=== PATIENT | female | born 1980 | race Caucasian/White ===

== ENCOUNTER 2018-06-07 12:00 | Emergency (ER) | payer OTHER ==
[2018-06-07 12:13] VITALS: BP 140/77; PULSE 98; TEMP 98.2; BMI 33.3
--- NOTE | 2018-06-07 13:07 | PDOC ---
History of Present Illness - General Chief Complaint: Pain Stated Complaint: PAIN Time Seen by Provider: 06/07/18 12:56 History Source: Patient Exam Limitations: No Limitations - History of Present Illness Initial Comments: CHIEF COMPLAINT: HISTORY OF PRESENT ILLNESS: Vital signs on arrival are within normal limits. REVIEW OF SYSTEMS: GENERAL/CONSTITUTIONAL: No fever/chills. No weakness. No weight change. HEAD, EYES, EARS, NOSE AND THROAT: No change in vision. No ear pain or discharge. No sore throat. CARDIOVASCULAR: No chest pain or shortness of breath. RESPIRATORY: No cough, wheezing, or hemoptysis. GASTROINTESTINAL: See history of present illness. MUSCULOSKELETAL: No joint or muscle swelling or pain. No neck or back pain. SKIN: No rash or easy bruising. NEUROLOGIC: No headache, vertigo, loss of consciousness, or loss of sensation. PHYSICAL EXAM: GENERAL: The patient is awake, alert, and fully oriented, in no acute distress. HEAD: Normal with no signs of trauma. ENT: Pupils equal, round and reactive to light, extraocular movements intact, sclera anicteric, conjunctiva clear. Neck supple. LUNGS: Clear to auscultation bilaterally. Normal excursion. No respiratory distress or use of accessory muscles. CV: RRR, S1/S2, no MRG. Cap refill < 2 sec. ABDOMEN: Soft, non-distended, non-tender even to deep palpation, no hepatomegaly or splenomegaly, no masses. EXTREMITIES: Normal range of motion, no edema. NEUROLOGICAL: Normal speech, normal gait. CN II-XII grossly intact. SKIN: Warm, dry, normal turgor, no rashes or lesions noted. Past History - Past Medical History Allergies/Adverse Reactions: Allergies Allergy/AdvReac Type Severity Reaction Status Date / Time black pepper Allergy Verified 09/16/15 22:27 sulfamethoxazole Allergy Verified 09/16/15 22:27 [From Bactrim] trimethoprim [From Bactrim] Allergy Verified 09/16/15 22:27 pineapples Allergy Mild Hives Uncoded 09/16/15 22:27 Home Medications: Ambulatory Orders Tramadol HCl 50 mg PO TID PRN #15 tablet 06/09/15 Oxycodone HCl/Acetaminophen [Percocet 5-325 mg Tablet] 1 - 2 tab PO Q6H PRN #15 tab 09/17/15 Cyclobenzaprine HCl 10 mg PO ASDIR 06/07/18 Gabapentin 600 mg PO ASDIR 06/07/18 Meclizine HCl 25 mg PO ASDIR 06/07/18 Meloxicam 15 mg PO ASDIR 06/07/18 Anemia: No Asthma: Yes Cardiac Disorders: No CVA: No COPD: No GI Disorders: Yes (CHRONIC CONSTIPATION, pancreatitis) Other medical history: Fibromyalgia,sciatica,spinal stenosis - Surgical History Abdominal Surgery: Yes - Reproductive History (#): 4 Para: 2 Therapeutic (s) & number: Yes (1) Spontaneous : 1 - Immunization History Immunization Up to Date: Yes - Suicide/Smoking/Psychosocial Hx Smoking Status: Yes Smoking History: Never smoked Have you smoked in the past 12 months: No Number of Cigarettes Smoked Daily: 2 'Breaking Loose' booklet given: 01/12/14 Hx Alcohol Use: No Drug/Substance Use Hx: No Substance Use Type: None Hx Substance Use Treatment: No *Physical Exam - Vital Signs Last Vital Signs Temp Pulse Resp BP Pulse Ox 98.2 F 98 H 20 140/77 100 06/07/18 12:08 06/07/18 12:08 06/07/18 12:08 06/07/18 12:08 06/07/18 12:08 Medical Decision Making - Medical Decision Making A/P:
[2018-06-07 14:44] LABS: BASO % 0.5 % (0-2.0); HEMATOCRIT 40.6 % (32.4-45.2); HEMOGLOBIN 14.4 GM/dL (10.7-15.3); LYMPH % 18.7 % (8-40); MCH 31.1 pg (25.7-33.7); MCHC 35.4 g/dl (32.0-36.0); MEAN CELL VOLUME 87.9 fl (80-96); MEAN PLT VOLUME 7.3 fl (7.5-11.1); MONO % 8.1 % (3.8-10.2); NEUT % 72.7 % (42.8-82.8); PLATELET COUNT 284 K/MM3 (134-434); RBC 4.62 M/mm3 (3.60-5.2); RDW 12.7 % (11.6-15.6); WHITE BLOOD COUNT 7.2 K/mm3 (4.0-10.0)
[2018-06-07 14:59] LABS: ALBUMIN 4.4 g/dl (3.4-5.0); ANION GAP 11 (8-16); BILIRUBIN,TOTAL 0.5 mg/dL (0.2-1.0); BLOOD UREA NITROGEN 13 mg/dL (7-18); CALCIUM 9.3 mg/dL (8.5-10.1); CHLORIDE 104 mmol/L (98-107); CO2 22 mmol/L (21-32); GLUCOSE,RANDOM 93 mg/dL (74-106); LIPASE 129 U/L (73-393); POTASSIUM 3.9 mmol/L (3.5-5.1); SODIUM 137 mmol/L (136-145)
[2018-06-07 15:01] LABS: ALK PHOS 56 U/L (45-117); CREATININE 0.7 mg/dL (0.55-1.02); SGOT/AST 20 U/L (15-37); SGPT/ALT 25 U/L (12-78); TOT PROT 7.8 g/dl (6.4-8.2)
[2018-06-07] MEDS ORDERED: morphine CARPU-JECT 4 MG/1 ML DISP.SYRIN IVPUSH ONE (15:56)
--- NOTE | 2018-06-07 16:01 | PDOC ---
History of Present Illness <Augustin Silveira - Last Filed: 06/07/18 19:58> - History of Present Illness Initial Comments: 06/07/18 15:48 37 yo F w a hx of arthritis, spinal stenosis, pancreatitis, tryglyceridemia, asthma, fibromyalgia, MRSA, H-pylori, vertigo, kidney stones is here with 4 days of diffuse abdominal pain which she describes as burning and stabbing in nature. The pain has gotten worse since it began. She originally said it was worst in the LUQ underneath the left rib. She then said the pain migrated to her epigastric region and feels like the pain is in abelt like distribution around the abdomen with radiation to the back. Patient is unsure if her back pain is new or chronic in nature given chronic sciatica and back pain. She also is endorsing dysuria, and frequency. Denies blood in her urine. Normal defecation, last BM this morning. No diarrhea or constipation. Patient is not sure if she had recent fevers bc she takes percocet (with tylenol ) so if she was febrile she wouldn't know. She has felt nauseas for 3 days but denies vomiting. She has not been able to sleep for the past 2 nights. She promises that she does not drink any alcohol. She smokes 2 or 3 cigarettes a day She has a hx of pancreatitis and kidney stones and says this current episode does not feel like either of those. 06/07/18 16:01 06/07/18 16:08 <Jaime Arreaga - Last Filed: 06/07/18 20:33> - General Chief Complaint: Pain Stated Complaint: PAIN Time Seen by Provider: 06/07/18 12:56 Past History <Augustin Silveira - Last Filed: 06/07/18 19:58> - Past Medical History Anemia: No Asthma: Yes Cardiac Disorders: No CVA: No COPD: No GI Disorders: Yes (CHRONIC CONSTIPATION, pancreatitis) Other medical history: Fibromyalgia,sciatica,spinal stenosis - Surgical History Abdominal Surgery: Yes - Reproductive History (#): 4 Para: 2 Therapeutic (s) & number: Yes (1) Spontaneous : 1 - Immunization History Immunization Up to Date: Yes - Suicide/Smoking/Psychosocial Hx Smoking Status: Yes Smoking History: Never smoked Have you smoked in the past 12 months: No Number of Cigarettes Smoked Daily: 2 'Breaking Loose' booklet given: 01/12/14 Hx Alcohol Use: No Drug/Substance Use Hx: No Substance Use Type: None Hx Substance Use Treatment: No <Jaime Arreaga - Last Filed: 06/07/18 20:33> - Past Medical History Allergies/Adverse Reactions: Allergies Allergy/AdvReac Type Severity Reaction Status Date / Time black pepper Allergy Verified 09/16/15 22:27 sulfamethoxazole Allergy Verified 09/16/15 22:27 [From Bactrim] trimethoprim [From Bactrim] Allergy Verified 09/16/15 22:27 pineapples Allergy Mild Hives Uncoded 09/16/15 22:27 Home Medications: Ambulatory Orders Tramadol HCl 50 mg PO TID PRN #15 tablet 06/09/15 Oxycodone HCl/Acetaminophen [Percocet 5-325 mg Tablet] 1 - 2 tab PO Q6H PRN #15 tab 09/17/15 Acetaminophen 500 mg PO PRN #30 tablet 06/07/18 Cyclobenzaprine HCl 10 mg PO ASDIR 06/07/18 Gabapentin 600 mg PO ASDIR 06/07/18 Meclizine HCl 25 mg PO ASDIR 06/07/18 Meloxicam 15 mg PO ASDIR 06/07/18 Review of Systems - Review of Systems Comments:: 06/07/18 16:16 CONSTITUTIONAL: Positive: loss of appetite, malaise Absent: fever, chills, diaphoresis, generalized weakness HEENT: Absent: rhinorrhea, nasal congestion, throat pain, throat swelling, difficulty swallowing, mouth swelling, ear pain, eye pain, visual Changes CARDIOVASCULAR: Absent: chest pain, syncope, palpitations, irregular heart rate, lightheadedness , peripheral edema RESPIRATORY: Absent: cough, shortness of breath, dyspnea with exertion, orthopnea, wheezing, stridor, hemoptysis GASTROINTESTINAL: Positive: Abdominal pain, Nausea Absent: abdominal distension, vomiting, diarrhea, constipation, melena, hematochezia GENITOURINARY: PositiveL dysuria, frequency, L flank pain Absent: urgency, hesitancy, hematuria, genital pain MUSCULOSKELETAL: Positive: myalgia, arthralgia Absent: joint swelling SKIN: Absent: rash, itching, pallor HEMATOLOGIC/IMMUNOLOGIC: Absent: easy bleeding, easy bruising, lymphadenopathy, frequent infections ENDOCRINE: Absent: unexplained weight gain, unexplained weight loss, heat intolerance, cold intolerance NEUROLOGIC: Positive: dizziness Absent: headache, focal weakness or paresthesias, unsteady gait, seizure, mental status changes, bladder or bowel incontinence PSYCHIATRIC: Absent: anxiety, depression, suicidal or homicidal ideation, hallucinations. <Jaime Arreaga - Last Filed: 06/07/18 20:33> *Physical Exam - Vital Signs Last Vital Signs Temp Pulse Resp BP Pulse Ox 98.2 F 98 H 20 140/77 100 06/07/18 12:08 06/07/18 12:08 06/07/18 12:08 06/07/18 12:08 06/07/18 12:08 <Augustin Silveira - Last Filed: 06/07/18 19:58> - Vital Signs Last Vital Signs Temp Pulse Resp BP Pulse Ox 98.2 F 98 H 20 140/77 100 06/07/18 12:08 06/07/18 12:08 06/07/18 12:08 06/07/18 12:08 06/07/18 12:08 - Physical Exam Comments: 06/07/18 16:21 ABDOMINAL: There is TTP in the epigastric, LUQ, and suprapubic regions. hr abdomen is soft. Non-tender. Non-distended. No rebound or guarding. No organomegaly. Normoactive bowel sounds. GENERAL: Patient is in mild distress due to pain Well developed, well nourished. Awake and alert. HEENT: Normocephalic, atraumatic. PERRLA, EOMI. No conjunctival pallor. Sclera are non- icteric. Moist mucous membranes. Oropharynx is clear. NECK: Supple. Full ROM. No JVD. Carotid pulses 2+ and symmetric, without bruits. No thyromegaly. No lymphadenopathy. CARDIOVASCULAR: Regular rate and rhythm. No murmurs, rubs, or gallops. Distal pulses are 2+ and symmetric. PULMONARY: No evidence of respiratory distress. Lungs clear to auscultation bilaterally. No wheezing, rales or rhonchi. MUSCULOSKELETAL Normal range of motion at all joints. No bony deformities. No CVA tenderness. EXTREMITIES: No cyanosis. No clubbing. No edema. No calf tenderness. SKIN: Warm and dry. Normal capillary refill. No rashes. No jaundice. NEUROLOGICAL: Alert, awake, appropriate. Cranial nerves 2-12 intact. No deficits to light touch and temperature in face, upper extremities and lower extremities. No motor deficits in the in face, upper extremities and lower extremities. Normoreflexic in the upper and lower extremities. Normal speech. Toes are down-going bilaterally. Gait is normal without ataxia. PSYCHIATRIC: Cooperative. Good eye contact. Appropriate mood and affect. 06/07/18 16:33 <Jaime Arreaga - Last Filed: 06/07/18 20:33> ED Treatment Course - LABORATORY CBC & Chemistry Diagram: 06/07/18 14:21 06/07/18 14:20 - ADDITIONAL ORDERS Additional order review: Laboratory Results 06/07/18 06/07/18 06/07/18 15:48 15:48 14:21 Sodium Potassium Chloride Carbon Dioxide Anion Gap BUN Creatinine Creat Clearance w eGFR Random Glucose Lactic Acid 1.3 Calcium Total Bilirubin AST ALT Alkaline Phosphatase Total Protein Albumin Lipase Urine Color Yellow Urine Appearance Slcloudy Urine pH 5.0 Ur Specific Normal 1.020 Urine Protein Negative Urine Glucose (UA) Negative Urine Ketones Negative Urine Blood Negative Urine Nitrite Negative Urine Bilirubin Negative Urine Urobilinogen Negative Ur Leukocyte Esterase Negative Urine HCG, Qual Negative 06/07/18 14:20 Sodium 137 Potassium 3.9 Chloride 104 Carbon Dioxide 22 Anion Gap 11 BUN 13 Creatinine 0.7 Creat Clearance w eGFR > 60 Random Glucose 93 Lactic Acid Calcium 9.3 Total Bilirubin 0.5 AST 20 ALT 25 Alkaline Phosphatase 56 Total Protein 7.8 Albumin 4.4 Lipase 129 Urine Color Urine Appearance Urine pH Ur Specific Normal Urine Protein Urine Glucose (UA) Urine Ketones Urine Blood Urine Nitrite Urine Bilirubin Urine Urobilinogen Ur Leukocyte Esterase Urine HCG, Qual 06/07/18 14:21 RBC 4.62 MCV 87.9 MCHC 35.4 RDW 12.7 MPV 7.3 L Neutrophils % 72.7 Lymphocytes % 18.7 Monocytes % 8.1 Eosinophils % 0.0 D Basophils % 0.5 - Medications Given in the ED: ED Medications Discontinued Medications Generic Name Dose Route Start Last Admin Trade Name Freq PRN Reason Stop Dose Admin Al Hydroxide/Mg Hydroxide 30 ml 06/07/18 16:32 06/07/18 16:48 Mylanta Oral Suspension - PO 06/07/18 16:33 30 ml ONCE ONE Administration Famotidine/Sodium Chloride 20 mg in 50 mls @ 100 mls/hr 07/26/18 16:32 16:48 Pepcid 20 Mg Premixed Ivpb - IVPB 06/07/18 17:01 100 mls/hr ONCE ONE Administration Morphine Sulfate 6 mg 06/07/18 15:56 06/07/18 16:08 Morphine Injection - IVPUSH 06/07/18 15:57 6 mg ONCE ONE Administration Sodium Chloride 1,000 ml 06/07/18 16:41 06/07/18 17:04 Normal Saline - IV 06/07/18 16:42 1,000 ml ONCE ONE Administration <Soniya Silveiraan - Last Filed: 06/07/18 19:58> - LABORATORY CBC & Chemistry Diagram: 06/07/18 14:21 06/07/18 14:20 - ADDITIONAL ORDERS Additional order review: Laboratory Results 06/07/18 06/07/18 14:21 14:20 Sodium 137 Potassium 3.9 Chloride 104 Carbon Dioxide 22 Anion Gap 11 BUN 13 Creatinine 0.7 Creat Clearance w eGFR > 60 Random Glucose 93 Lactic Acid 1.3 Calcium 9.3 Total Bilirubin 0.5 AST 20 ALT 25 Alkaline Phosphatase 56 Total Protein 7.8 Albumin 4.4 Lipase 129 06/07/18 14:21 RBC 4.62 MCV 87.9 MCHC 35.4 RDW 12.7 MPV 7.3 L Neutrophils % 72.7 Lymphocytes % 18.7 Monocytes % 8.1 Eosinophils % 0.0 D Basophils % 0.5 <Jaime Arreaga - Last Filed: 06/07/18 20:33> Medical Decision Making - Medical Decision Making 06/07/18 16:34 37 yo F w a hx of asthma, fibromyalgia, sciatica, arthritis, spinal stenosis, pancreatitis, kidney stones, pyelonephritis, tryglyceridemia, MRSA, H-pylori, vertigo, gastritis, hepatic steatosis, splenomegaly, is here w 4 days of sharp pain worst in the epigastrium. a month ago she had an US which showed hepatic steatosis, splenomegaly, and an enlarged gallbladder with no evidence of cholecystitis. bloodwork was unremarkable. lipase 126. Plan: UA, Hcg, RUQ US, +/- CTAP, re-assess, analgesia. Re-assessment: Patient feels somewhat better after 6 mg morphine. Urine unremarkable - no uti, no pylo, neg hcg. She is eating a large portion of food and looks much better than initial presentation. Plan is to DC w GI FU. 06/07/18 17:32 06/07/18 20:23 <Jaime Arreaga - Last Filed: 06/07/18 20:33> *DC/Admit/Observation/Transfer <JordanaAugustin - Last Filed: 06/07/18 19:58> <Jaime Arreaga - Last Filed: 06/07/18 20:33> Diagnosis at time of Disposition: Abdominal pain - Discharge Dispostion Disposition: HOME - Prescriptions Prescriptions: Acetaminophen 500 mg PO PRN #30 tablet - Referrals Referrals: Rivas Viera MD [Staff Physician] - - Patient Instructions Printed Discharge Instructions: DI for Abdominal Pain-Adult Additional Instructions: Follow up with a GI doctor within 1 week for further evaluation of your abdominal pain. You may need a repeat endoscopy. If you experience worsening pain, vomiting, fevers, or any other concerning symptoms, return to the ER immediately.
[2018-06-07] MEDS ORDERED: morphine SULFATE 4 MG/ML VIAL ONE (16:02)
[2018-06-07 16:12] LABS: URINE APPEARANCE SLCLOUDY; URINE BILIRUBIN NEGATIVE (<2.0 mg/dL); URINE COLOR YELLOW; URINE GLUCOSE (UA) NEGATIVE (NEGATIVE); URINE KETONE NEGATIVE (NEGATIVE); URINE LEUK ESTERASE NEGATIVE (NEGATIVE); URINE NITRITE NEGATIVE (NEGATIVE); URINE PROTEIN NEGATIVE (NEGATIVE); URINE UROBILINOGEN NEGATIVE mg/dL (0.2-1.0)
[2018-06-07] MEDS ORDERED: MAG HYDROX/AL HYDROX/SIMETH 30 ML UNIT-DOSE CUP PO ONE (16:32)
[2018-06-07] MEDS ORDERED: FAMOTIDINE 20 MG/50 ML IVPB 20 MG/50 ML MG IVPB ONE ×2 (16:32→16:43)
[2018-06-07] MEDS ORDERED: SODIUM CHLORIDE 0.9% 500 ML INFUS.BAG IV ONE (16:41)
[2018-06-07] MEDS ORDERED: MAG HYDROX/AL HYDROX/SIMETH 30 ML UNIT-DOSE CUP ONE (16:43)
--- NOTE | 2018-06-07 18:18 | PDOC ---
Attending Attestation - Resident Resident Name: AdelaadeolaJaime - ED Attending Attestation I have performed the following: I have examined & evaluated the patient, The case was reviewed & discussed with the resident, I agree w/resident's findings & plan, Exceptions are as noted - HPI HPI: 06/07/18 18:13 "The patient is a 37 year old female, with a significant PMH of arthritis, spinal stenosis, pancreatitis, triglyceridemia, asthma, fibromyalgia, MRSA, H- pylori, vertigo, kidney stones who presents to the emergency department with abdominal pain. Pt reports chronic abdominal pain for which she has been evaluated by her PMD, GI, and national business director. She reports multiple CT scans and ultrasounds, as well as endoscopy and colonoscopy, all of which have been inconclusive. Pt states that the pain she has currently is the pain she has had in the past. It is localized to her upper abdomen as well as her RLQ. Pt denies N/V. Denies diarrhea/constipation. The patient states she takes Percocet with Tylenol so she is unsure of any recent fevers. The patient reports a history of pancreatitis and kidney stones and states her symptoms today do not feel similar to either of these. The patient denies chest pain, shortness of breath, headache and dizziness. Denies vomit, diarrhea, constipation, urgency and hematuria. Allergies: black pepper, sulfamethoxazole, trimethoprim, [pineapples] - Physicial Exam PE: 06/07/18 18:16 "GENERAL: Awake, alert, and fully oriented, in no acute distress. HEAD: No signs of trauma EYES: PERRLA, EOMI, sclera anicteric, conjunctiva clear ENT: Auricles normal inspection, hearing grossly normal, nares patent, oropharynx clear without exudates. Moist mucosa NECK: Nontender, no stepoffs, Normal ROM, supple, no lymphadenopathy, JVD, or masses LUNGS: Breath sounds equal, clear to auscultation bilaterally. No wheezes, and no crackles HEART: Regular rate and rhythm, normal S1 and S2, no murmurs, rubs or gallops ABDOMEN: + diffuse abdominal tenderness, normoactive bowel sounds. No guarding , no rebound. No masses EXTREMITIES: Normal range of motion, no edema. No clubbing or cyanosis. No cords, erythema, or tenderness NEUROLOGICAL: Cranial nerves II through XII intact. 5/5 strength and sensation in all extremities, Normal speech, normal gait, normal cerebellar function SKIN: Warm, Dry, normal turgor, no rashes or lesions noted. - Medical Decision Making 06/07/18 18:17 37 F with chronic abdominal pain. Exam with diffuse tenderness. Low suspicion for acute process, as pain is consistent with pt's chronic symptoms. - Labs, UA, UPT - RUQ sono - IVF, GI cocktail 06/07/18 19:18 Labs, UA wnl Pending RUQ sono US unremarkable. Labs and UA wnl. Pt reassessed - is tolerating PO, eating dinner. Pt is well appearing, with normal vitals. Clinically stable for DC at this time. I discussed the physical exam findings, ancillary test results and final diagnoses with the patient. I answered all of the patient's questions. The patient was satisfied with the care received and felt comfortable with the discharge plan and treatment plan. The patient agrees to follow up with the primary care physician within 24-72 hours. <Augustin Silveira - Last Filed: 06/09/18 08:57> Attestations - Attestations 06/07/18 18:24 Documentation prepared by Jaime Echols, acting as emergency medical technician/driver for Augustin Silveira MD. <Jaime Echols - Last Filed: 06/07/18 18:24>
--- NOTE | 2018-06-08 11:25 | EKG ---
Test Reason : Blood Pressure : / mmHG Vent. Rate : 083 BPM Atrial Rate : 083 BPM P-R Int : 144 ms QRS Dur : 086 ms QT Int : 376 ms P-R-T Axes : 043 064 054 degrees QTc Int : 441 ms NORMAL SINUS RHYTHM NORMAL ECG WHEN COMPARED WITH ECG OF 01-FEB-2012 08:32, NONSPECIFIC T WAVE ABNORMALITY, IMPROVED IN ANTERIOR LEADS Confirmed by QUITA GARCIA, MINDY ([id number]) on 06/08/2018 11:25:14 AM Referred By: Confirmed By:MINDY DEVLIN MD
== END 2018-06-07 20:04 | disposition home or self-care (01) ==
LOC: JER 12:00
DX: R10.84 Generalized abdominal pain (principal); M12.9 Arthropathy, unspecified; K86.9 Disease of pancreas, unspecified; M48.00 Spinal stenosis, site unspecified; E78.5 Hyperlipidemia, unspecified; J45.909 Unspecified asthma, uncomplicated; M79.7 Fibromyalgia; Z87.442 Personal history of urinary calculi; Z86.14 Personal history of Methicillin resistant Staphylococcus aureus infection; Z86.19 Personal history of other infectious and parasitic diseases
CPT/HCPCS: 36415; 76705-TC; 80053; 81003; 83605; 83690; 84703; 85025; 93005; 93010; 99283-25

== ENCOUNTER 2018-06-21 16:15 | Emergency (ER) | payer OTHER ==
[2018-06-21 16:33] VITALS: BP 141/72; PULSE 81; TEMP 98; BMI 43.9
--- NOTE | 2018-06-21 16:34 | PDOC ---
Rapid Medical Evaluation Time Seen by Provider: 06/21/18 16:32 Medical Evaluation: Allergies Allergy/AdvReac Type Severity Reaction Status Date / Time black pepper Allergy Verified 09/16/15 22:27 sulfamethoxazole Allergy Verified 09/16/15 22:27 [From Bactrim] trimethoprim [From Bactrim] Allergy Verified 09/16/15 22:27 pineapples Allergy Mild Hives Uncoded 09/16/15 22:27 I have performed a brief in-person evaluation of this patient. The patient presents with a chief complaint of: left arm swelling and burning s /p CT scan with contrast today Pertinent physical exam findings: swollen left arm I have ordered the following: none. Patient has an IUD The patient will proceed to the ED for further evaluation. Discharge Disposition - Diagnosis Left arm swelling - Referrals - Patient Instructions - Post Discharge Activity
[2018-06-21] MEDS ORDERED: diphenhydrAMINE HCL 25 MG CAPSULE (FP) PO ONE ×2 (17:10→17:47)
[2018-06-21] MEDS ORDERED: IBUPROFEN 400 MG TABLET (FP) PO ONE ×2 (17:10→17:47)
[2018-06-21] MEDS ORDERED: ONDANSETRON *ODT* 4 MG TABLET SL ONE (18:52)
--- NOTE | 2018-06-21 18:52 | PDOC ---
History of Present Illness - General Chief Complaint: Chronic pain Stated Complaint: NUMBNESS Time Seen by Provider: 06/21/18 16:32 Past History - Travel Traveled outside of the country in the last 30 days: No Close contact w/someone who was outside of country & ill: No - Past Medical History Allergies/Adverse Reactions: Allergies Allergy/AdvReac Type Severity Reaction Status Date / Time black pepper Allergy Verified 06/21/18 16:34 sulfamethoxazole Allergy Verified 06/21/18 16:34 [From Bactrim] trimethoprim [From Bactrim] Allergy Verified 06/21/18 16:34 pineapples Allergy Mild Hives Uncoded 06/21/18 16:34 Home Medications: Ambulatory Orders Oxycodone HCl/Acetaminophen [Percocet 5-325 mg Tablet] 1 - 2 tab PO Q6H PRN #15 tab 09/17/15 Acetaminophen 500 mg PO PRN #30 tablet 06/07/18 Cyclobenzaprine HCl 10 mg PO ASDIR 06/07/18 Gabapentin 600 mg PO ASDIR 06/07/18 Meclizine HCl 25 mg PO ASDIR 06/07/18 Meloxicam 15 mg PO ASDIR 06/07/18 Albuterol Sulfate Inhaler - [Ventolin Hfa Inhaler -] 1 - 2 inh PO Q4H PRN Fenofibrate Nanocrystallized [Tricor] 145 mg PO DAILY 06/21/18 Montelukast Sodium [Singulair] 10 mg PO DAILY 06/21/18 Anemia: No Asthma: Yes Cardiac Disorders: No CVA: No COPD: No GI Disorders: Yes (CHRONIC CONSTIPATION, pancreatitis) - Surgical History Abdominal Surgery: Yes - Reproductive History (#): 4 Para: 2 Therapeutic (s) & number: Yes (1) Spontaneous : 1 - Immunization History Immunization Up to Date: Yes - Suicide/Smoking/Psychosocial Hx Smoking Status: Yes Smoking History: Never smoked Have you smoked in the past 12 months: No Number of Cigarettes Smoked Daily: 2 Information on smoking cessation initiated: No 'Breaking Loose' booklet given: 01/12/14 Hx Alcohol Use: No Drug/Substance Use Hx: No Substance Use Type: None Hx Substance Use Treatment: No Review of Systems - Review of Systems Able to Perform ROS?: Yes Comments:: 06/21/18 19:33 CONSTITUTIONAL: Absent: fever, chills, diaphoresis, generalized weakness, malaise, loss of appetite HEENT: Absent: rhinorrhea, nasal congestion, throat pain, throat swelling, difficulty swallowing, mouth swelling, ear pain, eye pain, visual Changes CARDIOVASCULAR: Absent: chest pain, loss of consciousness, palpitations, irregular heart rate, peripheral edema RESPIRATORY: Absent: cough, shortness of breath, dyspnea with exertion, orthopnea, wheezing, stridor, hemoptysis GASTROINTESTINAL: Absent: abdominal pain, abdominal distension, nausea, vomiting, diarrhea, constipation, melena, hematochezia GENITOURINARY: Absent: dysuria, frequency, urgency, hesitancy, hematuria, flank pain, genital pain MUSCULOSKELETAL: Absent: myalgia, arthralgia, joint swelling SKIN: Absent: rash, itching, pallor HEMATOLOGIC/IMMUNOLOGIC: Absent: easy bleeding, easy bruising, lymphadenopathy, frequent infections ENDOCRINE: Absent: unexplained weight gain, unexplained weight loss, heat intolerance, cold intolerance NEUROLOGIC: Absent: headache, focal weakness or paresthesias, dizziness, unsteady gait, seizure, mental status changes, bladder or bowel incontinence PSYCHIATRIC: Absent: anxiety, depression, suicidal or homicidal ideation, hallucinations. Is the patient limited Estonian proficient: No *Physical Exam - Vital Signs Last Vital Signs Temp Pulse Resp BP Pulse Ox 98.0 F 81 20 141/72 98 06/21/18 16:29 06/21/18 16:29 06/21/18 16:29 06/21/18 16:29 06/21/18 16:29 - Physical Exam Comments: 06/21/18 19:33 GENERAL: Well developed, well nourished. Awake and alert. No acute distress. HEENT: Normocephalic, atraumatic. PERRLA, EOMI. No conjunctival pallor. Sclera are non- icteric. Moist mucous membranes. Oropharynx is clear. NECK: Supple. Full ROM. No JVD. Carotid pulses 2+ and symmetric, without bruits. No thyromegaly. No lymphadenopathy. CARDIOVASCULAR: Regular rate and rhythm. No murmurs, rubs, or gallops. Distal pulses are 2+ and symmetric. PULMONARY: No evidence of respiratory distress. Lungs clear to auscultation bilaterally. No wheezing, rales or rhonchi. ABDOMINAL: Soft. Non-tender. Non-distended. No rebound or guarding. No organomegaly. Normoactive bowel sounds. MUSCULOSKELETAL Normal range of motion at all joints. No bony deformities or tenderness. No CVA tenderness. EXTREMITIES: No cyanosis. No clubbing. No edema. No calf tenderness. SKIN: Warm and dry. Normal capillary refill. No rashes. No jaundice. NEUROLOGICAL: Alert, awake, appropriate. Cranial nerves 2-12 intact. No deficits to light touch and temperature in face, upper extremities and lower extremities. No motor deficits in the in face, upper extremities and lower extremities. Normoreflexic in the upper and lower extremities. Normal speech. Toes are down- going bilaterally. Gait is normal without ataxia. PSYCHIATRIC: Cooperative. Good eye contact. Appropriate mood and affect. ED Treatment Course - Medications Given in the ED: ED Medications Discontinued Medications Generic Name Dose Route Start Last Admin Trade Name Finnq PRN Reason Stop Dose Admin Diphenhydramine HCl 25 mg 06/21/18 17:10 06/21/18 17:49 Benadryl - PO 06/21/18 17:11 25 mg ONCE ONE Administration Ibuprofen 800 mg 06/21/18 17:10 06/21/18 17:49 Motrin - PO 06/21/18 17:11 800 mg ONCE ONE Administration *DC/Admit/Observation/Transfer Diagnosis at time of Disposition: Left arm swelling - Discharge Dispostion Disposition: HOME Condition at time of disposition: Stable Decision to Admit order: No - Referrals Referrals: Dima De La Torre MD [Staff Physician] - - Patient Instructions Printed Discharge Instructions: DI for Hematoma (Bruise) Additional Instructions: Your IV sites were infiltrated today which led to your swelling in hands and arms. Please continue to apply ice to the area 20 minutes on 20 minutes off for the next 2 days. You may then switch to heat. You may take Motrin 800 mg every 8 hours as needed for pain. Please take Keflex 500 mg twice a day to prevent infection. Please follow-up with your primary care doctor Return to emergency department if you have worsening swelling, cannot move your fingers, he did not feel a pulse in your arm, the pain gets worse, or if you have any changes in your symptoms. - Post Discharge Activity
[2018-06-21] MEDS ORDERED: ONDANSETRON *ODT* 4 MG TABLET ONE (19:05)
== END 2018-06-21 20:08 | disposition home or self-care (01) ==
LOC: JER 16:15
DX: R22.32 Localized swelling, mass and lump, left upper limb (principal)
CPT/HCPCS: 99281-25; Q0162

== ENCOUNTER 2021-03-12 09:07 | Emergency (ER) | payer OTHER ==
[2021-03-12 09:16] VITALS: BMI 40.2
[2021-03-12] MEDS ORDERED: METOCLOPRAMIDE HCL INJECTION 10 MG/2 ML VIAL IVPB ONE (09:48)
[2021-03-12] MEDS ORDERED: ACETAMINOPHEN 1000 MG/100 ML VIAL (NON FORMULARY) IVPB ONE (09:52)
[2021-03-12] MEDS ORDERED: LACTATED RINGERS SOLUTION 1,000 ML/1,000 ML INFUS.BAG IV STA (09:53)
[2021-03-12] MEDS ORDERED: ACETAMINOPHEN INJECTION 100 ML IVPB ONE (09:54)
[2021-03-12] MEDS ORDERED: METOCLOPRAMIDE HCL INJECTION 10 MG/2 ML VIAL ONE (09:54)
[2021-03-12] MEDS ORDERED: MAG HYDROX/AL HYDROX/SIMETH 30 ML UNIT-DOSE CUP PO ONE (10:04)
[2021-03-12] MEDS ORDERED: FAMOTIDINE 20 MG/50 ML IVPB 20 MG/50 ML MG IVPB ONE ×2 (10:04→10:06)
[2021-03-12] MEDS ORDERED: MAG HYDROX/AL HYDROX/SIMETH 30 ML UNIT-DOSE CUP ONE (10:06)
[2021-03-12 10:08] LABS: BASO % 0.5 % (0-2.0); EOS % 0.1 % (0-4.5); HEMATOCRIT 37.4 % (32.4-45.2); LYMPH % 30.1 % (8-40); MCH 31.9 pg (25.7-33.7); MCHC 34.9 g/dl (32.0-36.0); MEAN CELL VOLUME 91.6 fl (80-96); MEAN PLT VOLUME 7.6 fl (7.5-11.1); MONO % 7.3 % (3.8-10.2); PLATELET COUNT 282 K/MM3 (134-434); RBC 4.09 M/mm3 (3.60-5.2); RDW 13.4 % (11.6-15.6)
[2021-03-12 10:10] LABS: URINE APPEARANCE CLEAR; URINE BILIRUBIN NEGATIVE (NEGATIVE); URINE COLOR YELLOW; URINE GLUCOSE (UA) NEGATIVE (NEGATIVE); URINE KETONE NEGATIVE (NEGATIVE); URINE LEUK ESTERASE NEGATIVE (NEGATIVE); URINE NITRITE NEGATIVE (NEGATIVE); URINE PROTEIN NEGATIVE (NEGATIVE); URINE UROBILINOGEN 0.2 mg/dL (0.2-1.0)
[2021-03-12 10:22] LABS: CHLORIDE 108 mmol/L (98-107); SODIUM 133 mmol/L (136-145)
[2021-03-12 10:24] LABS: ALBUMIN 3.6 g/dl (3.4-5.0); BLOOD UREA NITROGEN 13.9 mg/dL (7-18); CALCIUM 8.6 mg/dL (8.5-10.1); CO2 21 mmol/L (21-32); GLUCOSE,RANDOM 90 mg/dL (74-106); LIPASE 78 U/L (73-393)
[2021-03-12 10:26] LABS: CREATININE 0.7 mg/dL (0.55-1.3)
[2021-03-12 10:27] LABS: TRIGLYCERIDES 168 mg/dL (0-150)
[2021-03-12 10:28] LABS: TOT PROT 7.9 g/dl (6.4-8.2)
[2021-03-12 10:30] LABS: ALK PHOS 60 U/L (45-117)
[2021-03-12 10:52] LABS: ANION GAP 4 MMOL/L (8-16); BILIRUBIN,TOTAL < 0.1 mg/dL (0.2-1); SGOT/AST 169 U/L (15-37); SGPT/ALT 37 U/L (13-61)
[2021-03-12 12:59] VITALS: BP 110/78; PULSE 89; TEMP 98.5
== END 2021-03-12 12:59 | disposition home or self-care (01) ==
LOC: JER 09:07
PROC: 3E033NZ Introduction of Analgesics, Hypnotics, Sedatives into Peripheral Vein, Percutaneous Approach (ICD-10-PCS; principal; 2021-03-12)
PROC: 3E033GC Introduction of Other Therapeutic Substance into Peripheral Vein, Percutaneous Approach (ICD-10-PCS; 2021-03-12)
PROC: 3E0337Z Introduction of Electrolytic and Water Balance Substance into Peripheral Vein, Percutaneous Approach (ICD-10-PCS; 2021-03-12)
DX: R10.9 Unspecified abdominal pain (principal)
CPT/HCPCS: 36415; 74177-TC; 80053; 81003; 83690; 84132; 84478; 84703; 85025; 87086; 99285-25; J0131; Q9967

== ENCOUNTER 2021-05-26 15:36 | Emergency (ER) | payer OTHER ==
[2021-05-26 16:00] VITALS: BP 113/77; PULSE 79; TEMP 98.4; BMI 37.4
== END 2021-05-26 16:40 | disposition left against medical advice (07) ==
LOC: JER 15:36
DX: R07.9 Chest pain, unspecified (principal)
CPT/HCPCS: 99281-25

== ENCOUNTER 2022-02-11 12:42 | Emergency (ER) | payer OTHER ==
[2022-02-11 13:00] VITALS: BMI 38.2
[2022-02-11] MEDS ORDERED: ACETAMINOPHEN 500 MG TABLET (FP) PO ONE (14:07)
[2022-02-11] MEDS ORDERED: LIDOCAINE 5% TOPICAL PATCH TP ONE (14:08)
[2022-02-11] MEDS ORDERED: ACETAMINOPHEN 325 MG TABLET (FP) ONE (15:25)
[2022-02-11] MEDS ORDERED: LIDOCAINE 5% TOPICAL PATCH ONE (15:25)
[2022-02-11] MEDS ORDERED: DIPHTH,PERTUSS(ACELL),TET 0.5 ML DISP.SYRIN IM ONE ×2 (17:58→18:33)
[2022-02-11 18:30] VITALS: BP 128/72; PULSE 72; TEMP 98.8
[2022-02-11] MEDS ORDERED: LIDOCAINE PATCH REMOVAL MC SCH (22:00)
== END 2022-02-11 19:18 | disposition home or self-care (01) ==
LOC: JER 12:42
PROC: 3E0234Z Introduction of Serum, Toxoid and Vaccine into Muscle, Percutaneous Approach (ICD-10-PCS; principal; 2022-02-11)
DX: M54.50 Low back pain, unspecified (principal); Y04.0XXA Assault by unarmed brawl or fight, initial encounter
CPT/HCPCS: 70450-TC; 73130-TC-RT-FY; 73630-TC-RT-FY; 90471; 90715; 99285-25

== ENCOUNTER 2023-01-13 04:43 | Emergency (ER) | payer OTHER ==
[2023-01-13 04:47] VITALS: BP 139/93; PULSE 80; RESP 18; TEMP 97.8; BMI 34.6
[2023-01-13] MEDS ORDERED: KETOROLAC TROMETHAMINE 30 MG/1 ML VIAL IVPUSH ONE (06:12)
[2023-01-13] MEDS ORDERED: KETOROLAC TROMETHAMINE 30 MG/1 ML VIAL ONE (06:28)
[2023-01-13] MEDS ORDERED: FAMOTIDINE 20 MG/50 ML IVPB 20 MG/50 ML MG IVPB ONE ×2 (06:31→06:41)
[2023-01-13 06:58] LABS: BASO % 0.4 % (0-2.0); HEMATOCRIT 36.6 % (32.4-45.2); LYMPH % 25.3 % (8-40); MCH 31.5 pg (25.7-33.7); MCHC 35.5 g/dl (32.0-36.0); MEAN CELL VOLUME 88.9 fl (80-96); MEAN PLT VOLUME 7.3 fl (7.5-11.1); MONO % 6.6 % (3.8-10.2); NEUT % 67.7 % (42.8-82.8); PLATELET COUNT 301 10^3/uL (134-434); RBC 4.12 M/mm3 (3.60-5.2); RDW 12.6 % (11.6-15.6)
[2023-01-13 07:21] LABS: CALCIUM 9.2 mg/dL (8.5-10.1)
[2023-01-13 07:22] LABS: ALBUMIN 4.4 g/dl (3.4-5.0); BLOOD UREA NITROGEN 17.1 mg/dL (7-18)
[2023-01-13 07:25] LABS: CREATININE 0.8 mg/dL (0.55-1.3)
[2023-01-13 07:26] LABS: TOT PROT 7.4 g/dl (6.4-8.2)
[2023-01-13 07:27] LABS: BILIRUBIN,TOTAL 0.5 mg/dL (0.2-1)
[2023-01-13] MEDS ORDERED: MAG HYDROX/AL HYDROX/SIMETH -MYLANTA- ORAL SUSPENSION PO ONE (07:38)
[2023-01-13 07:45] LABS: HCG,QUALITATIVE URINE Negative
[2023-01-13 08:05] LABS: URINE COLOR DK YELLOW
[2023-01-13 08:06] LABS: PH,URINE 6.5 (5.0-8.0); URINE APPEARANCE CLEAR; URINE BILIRUBIN NEGATIVE (NEGATIVE); URINE GLUCOSE (UA) NEGATIVE (NEGATIVE); URINE KETONE TRACE (NEGATIVE); URINE LEUK ESTERASE NEGATIVE (NEGATIVE); URINE NITRITE NEGATIVE (NEGATIVE); URINE PROTEIN 1+ (NEGATIVE)
[2023-01-13] MEDS ORDERED: MAG HYDROX/AL HYDROX/SIMETH 30 ML UNIT-DOSE CUP ONE (09:10)
[2023-01-13] MEDS ORDERED: ACETAMINOPHEN 1000 MG/100 ML BAG IVPB ONE (10:21)
[2023-01-13] MEDS ORDERED: ACETAMINOPHEN INJECTION 100 ML IVPB ONE (10:25)
[2023-01-13] MEDS ORDERED: ACETAMINOPHEN 325 MG TABLET (FP) PO ONE (12:51)
[2023-01-13] MEDS ORDERED: ACETAMINOPHEN 325 MG TABLET (FP) ONE (13:06)
== END 2023-01-13 13:15 | disposition home or self-care (01) ==
LOC: JER 04:43
PROC: 3E0333Z Introduction of Anti-inflammatory into Peripheral Vein, Percutaneous Approach (ICD-10-PCS; principal; 2023-01-13)
PROC: 3E033GC Introduction of Other Therapeutic Substance into Peripheral Vein, Percutaneous Approach (ICD-10-PCS; 2023-01-13)
PROC: 3E0333Z Introduction of Anti-inflammatory into Peripheral Vein, Percutaneous Approach (ICD-10-PCS; 2023-01-13)
DX: N83.202 Unspecified ovarian cyst, left side (principal); R10.32 Left lower quadrant pain
CPT/HCPCS: 0241U-QW; 36415; 76705-TC; 76830-TC; 80053; 81003; 83605; 83690; 84703; 85025; 87086; 99285-25